=== PATIENT | male | born 1950 | race Caucasian/White ===

== ENCOUNTER 2024-06-23 20:49 | Inpatient (IN) | payer OTHER, MEDICARE, SELFPAY ==
[2024-06-23 14:48] VITALS: BP 141/83; BMI 21.6
--- NOTE | 2024-06-23 15:00 | EDRN ---
Pt started to drink CT contrast @ 1500
[2024-06-23 15:20] LABS: % Basophils 0.3 % (0-2); % Eosinophils 0.2 % (0-6); % Immature Granulocytes 0.7 % (0-0.5); % Lymphocytes 18.8 % (20.5-51.1); % Monocytes 9.1 % (1.7-9.3); % Neutrophils 70.9 % (42.2-75.2); Absolute Immature Granulocytes 0.1 10^3/uL (0-0.05); Absolute Lymphocytes 1.9 10^3/uL (1.2-3.4); Absolute Monocytes 0.9 10^3/uL (0.1-0.6); Absolute Neutrophils 7.1 10^3/uL (1.4-6.5); Hematocrit 35.8 % (39.0-52.0); Hemoglobin 12.9 g/dL (13.0-18.0); Mean Platelet Volume 11.7 fL (7.4-10.4); Nucleated Red Blood Cells % 0 % (-); Platelet Count 105 10^3/uL (130-400); Red Blood Cell Count 3.69 10^6/uL (4.70-6.10); Red Cell Dist. Width 13.9 % (11.5-14.5)
[2024-06-23 15:27] LABS: ALT (SGPT) 32 U/L (0-50); AST (SGOT) 39 U/L (17-59); Albumin 4.3 g/dl (3.5-5.0); Alkaline Phosphatase 67 U/L (38-126); Blood Urea Nitrogen 19 mg/dl (9-20); Calcium 9.6 mg/dl (8.4-10.2); Carbon Dioxide 23 mmol/L (22-30); Chloride 103 mmol/L (98-107); Estimated Creatinine Clearance 91 ml/min; Glucose 104 mg/dl (70-99); Lipase 76 U/L (23-300); Potassium 4.3 mmol/L (3.5-5.1); Sodium 135 mmol/L (135-145); Total Bilirubin 2.9 mg/dl (0.2-1.3); Total Protein 7.1 g/dl (6.3-8.2); eGFR > 60.00
[2024-06-23 16:42] VITALS: BP 136/70
--- NOTE | 2024-06-23 17:59 | ED.GENMED ---
History of Present Illness
General
Chief Complaint: Abdominal Pain
Source: patient
Exam Limitations: none
Time Seen by Provider: 06/23/24 17:54
History of Present Illness
History of Present Illness:
See MDM
Past History
Past History
ED Past Medical History: Arrthythmia and HTN
ED Past Surgical History: Cardiac (Pacemaker)
Phy Exam
Physical Exam
Physical Exam:
See MDM
Course
Orders/Labs/Results
Orders:
Orders
06/23/24 14:53
CT Abd/pel (oral only)-[facility] Only Urgent
Comment:
Reason For Exam: RLQ pain
06/23/24 14:55
Iohexol [Omnipaque] 50 ml .ROUTE .STK-MED ONE
06/23/24 14:58
Complete Blood Count/With Diff Urgent
Comprehensive Metabolic Panel Urgent
Lipase Urgent
06/23/24 18:31
Piperacillin/Tazo 3.375 Gram [Zosyn] 3.375 gram in 50 ml IV NOW
Abnormal Lab Results
06/23/24
14:58
RBC 3.69 L 10^6/uL
(4.70-6.10)
Hgb 12.9 L g/dL
(13.0-18.0)
Hct 35.8 L %
(39.0-52.0)
MCV 97.0 H fL
(80.0-94.0)
MCH 35.0 H pg
(27.0-31.0)
Plt Count 105 L 10^3/uL
(130-400)
MPV 11.7 H fL
(7.4-10.4)
Abs Immat Gran (auto) 0.1 H 10^3/uL
(0-0.05)
Absolute Neuts (auto) 7.1 H 10^3/uL
(1.4-6.5)
Absolute Monos (auto) 0.9 H 10^3/uL
(0.1-0.6)
Immature Gran % 0.7 H %
(0-0.5)
Lymphocytes % 18.8 L %
(20.5-51.1)
Glucose 104 H mg/dl
(70-99)
Total Bilirubin 2.9 H mg/dl
(0.2-1.3)
06/23/24 14:58
06/23/24 14:58
Vital Signs
Initial and Last Documented VS:
Initial Vital Signs
Temp Pulse Resp BP Pulse Ox
98.5 F 81 16 141/83 98
06/23/24 14:48 06/23/24 14:48 06/23/24 14:48 06/23/24 14:48 06/23/24 14:48
Last Documented Vital Signs
Temp Pulse Resp BP Pulse Ox
98.4 F 83 18 131/72 99
06/23/24 16:42 06/23/24 18:28 06/23/24 18:28 06/23/24 18:28 06/23/24 18:28
MDM/Problems Addressed
Differential Diagnosis Includes:
HPI and MDM Narrative:
74-year-old male presenting for evaluation of right lower quadrant pain. Symptoms have been ongoing for the past several days. He saw his PCP today. Due to the tenderness to the right lower quadrant, he was sent in for CT to rule out acute
appendicitis. Patient denies pain with urination or food intake.
On exam, he does have point tenderness to right lower quadrant. Blood work without significant abnormality. CT pending
Physical exam
General: Well appearing and non-toxic
HEENT: protecting airway
Neck: appears supple
CV: No evidence of cyanosis
Resp: No accessory muscle use
Abd: Non-distended. Point tenderness to right lower quadrant
Extremities: No deformities
Neuro: alert
Psych: Normal affect
Skin: Intact
Problems Addressed including Acute and Chronic Conditions affecting care:
1. Right lower quadrant pain
Acuity: acute
Prognosis: stable
Details: Given the point tenderness, will obtain CT to rule out acute appendicitis
Updates
CT consistent with acute appendicitis. Given no fever, no leukocytosis and how well-appearing he is, patient does not require emergent surgery. General surgery made aware. Will start Zosyn and for surgical evaluation
Differential Diagnosis (but not limited to): Acute appendicitis, colitis, kidney stone
Testing considered: Right upper quadrant ultrasound but no pain with food intake and no pain to right upper quadrant
Drug therapy (if applicable): OTC meds, please see d/c instruction regarding Rx drugs
Amount and/or Complexity of Data Reviewed
Clinical info obtained from: Patient
External data reviewed: N/A
Labs I independently reviewed (but not limited to): White blood cell count within normal limits
Radiology: The CT scan was personally and independently reviewed. In addition, official CT report reviewed.
Pulse Ox: not hypoxic
EKG independently reviewed: N/A
Assistant Surveyor: N/A
Critical Care: N/A
Risk of Complication:
Social Determinants of health: Good social support
Discussed with other providers: Hospitalist, general surgery
Escalation of Care includes Admit/Obs: Given CT evidence of acute appendicitis, will admit for surgical evaluation and fixation
Occasional wrong word or 'sound a like' substitutions may have occurred due to the inherent limitations of voice recognition software. Read the chart carefully and recognize, using context, where substitutions have occurred.
*Critical Care Note
Total Time (30-74mins, 75-104mins- exclusive of procedures): Not Applicable
ED Attending Note
-
Portions of this chart may have been created with voice recognition software.� Occasional wrong word or��sound alike� substitutions may have occurred due to the inherent limitations of voice recognition software.
Discharge Plan
Departure
Patient Disposition: Admit
Date of Disposition: 06/23/24
Time of Disposition: 18:38
Admit to: Med/Surg
Presentation/result/management discussed w/ accepting MD/DO: Hospitalist
Discharge Problem:
Acute appendicitis
Interventions
Interventions:
*Risk Screen - Suicide Last Done: 06/23/24 14:48
*General Assessment Last Done: 06/23/24 17:45
*Neglect/Abuse Screening Last Done: 06/23/24 14:48
ED- Fall Risk Assessment Last Done: 06/23/24 14:48
EA-Kxcluo-Bpkfstnvjh Assessment Last Done: 06/23/24 17:45
Discharge Date and Time
Print Language: KOSOVAN
[2024-06-23 18:28] VITALS: BP 131/72
[2024-06-23] MEDS: ZOSYN 50 IV ×2 (18:38→22:58)
--- NOTE | 2024-06-23 20:04 | HPS.HSE ---
Family Physician
-
Family Physician: Trice Goldman, PAC
Chief Complaint
-
Abdominal pain
History of Present Illness
74M HX AF, chr Eliquis, Defibrillator implant, HTN sent to ER for abdominal pain and OP CT AP script
Evaluation of Abdominal pain
- Acute onset RLQ pain for a few days.
- Last dose of Eliquis was this morning.(Fri06/23/24)
- No fever and WBC normal.
Medical History
Past Medical History
Past Medical History: Reports Arrhythmia and HTN
Past Surgical History: Reports Cardiac (PPM implant )
Social History
Tobacco: Non-smoker
Alcohol: None
Drug: None
Family History
Family History: Not pertinent
Allergies / Home Medications
Allergies reflects when Allergies were last updated in [facility].
Home Medications with original date entered in [facility]
Allergy/Medication List:
Allergies
Allergy/AdvReac Type Severity Reaction Status Date / Time
No Known Allergies Allergy Unverified 06/23/24 14:48
Home Medications
apixaban 5 mg tablet (Eliquis) 5 mg PO BID 06/23/24
atorvastatin 80 mg tablet 80 mg PO HS 06/23/24
clopidogrel 75 mg tablet 75 mg PO DAILY 06/23/24
lisinopril 5 mg tablet 5 mg PO HS 06/23/24
metoprolol succinate 100 mg tablet,extended release 24 hr 100 mg PO DAILY 06/23/24
therapeutic multivitamin 1 tab PO DAILY 06/23/24
Review of Systems
-
Constitutional: Reports No Symptoms
EENT: Reports No Symptoms
Respiratory: Reports No Symptoms
Cardiac: Reports No Symptoms
Abdomen/GI: Reports Abdominal Pain
: Reports No Symptoms
Musculoskeletal: Reports No Symptoms
Skin: Reports No Symptoms
Neurological: Reports No Symptoms
Endocrine: Reports No Symptoms
Hematologic/Lymphatic: Reports No Symptoms
Psych: Reports No Symptoms
Physical Exam
Vital Signs
Vital Signs
Temp Pulse Resp BP Pulse Ox
98.4 F 83 18 131/72 99
06/23/24 16:42 06/23/24 18:28 06/23/24 18:28 06/23/24 18:28 06/23/24 18:28
Physical Exam
General: No Apparent Distress, Comfortable and Conversant
HEENT: NormoCephalic, Anicteric and Moist mucous membranes
Respiratory: Clear
Cardiac: S1/S2 and Other (AICD im plant at Rt upper chest )
GI: Soft and Tender (RLQ , tenderness, non rebound )
Genito-urinary: Deferred by me
Musculoskeletal: No Edema
Neuro: AO x 3
Psych: Calm and Intact Judgment/Insight
Laboratory Results
-
06/23/24 14:58
06/23/24 14:58
Laboratory Results
Total Bilirubin 2.9 mg/dl (0.2-1.3) H 06/23/24 14:58
AST 39 U/L (17-59) 06/23/24 14:58
ALT 32 U/L (0-50) 06/23/24 14:58
Alkaline Phosphatase 67 U/L (38-126) 06/23/24 14:58
Lipase 76 U/L (23-300) 06/23/24 14:58
Data Reviewed
-
CT Scan: Report Reviewed by me
Lab Data: Labs Reviewed by me
Impression/Plan
-
Reviewed VS: unremarkable
Data
WCC 10
Hgb 12.9
Plt 105
TB 2.9
otherwise nl LFTs
CT Abd/pel (oral only)-[facility] Only
- acute appendicitis.
No prior [facility] admission:
ASSESSMENT & PLAN
Acute uncomplicated pancreatitis
last dose of Eliquis was this AM Fri06/23/24
- Stable
- no fever, no leukocytosis
- Held Plavix and Eliquis ( Last dose of Plavix and Eliquis Wed 9AM 06/23)
- NPO and IVF
- Empiric IV Zosyn
- Analgesia PRN
- GS consulted by ER
HX Prx AF
Present AICD implant
- Held Eliquis
HX CAD
- Held Plavix
Essential HTN
- IV Hydralazine PRN
- Held Lisinopril
DVT Px: SCD
Code: Full code
IP TLM
[2024-06-23 20:37] VITALS: BP 132/75
[2024-06-23 21:30] VITALS: BMI 21.8
[2024-06-23 21:31] VITALS: BP 132/71
[2024-06-23] MEDS: LOPRESSOR 5 MG IV (22:55)
[2024-06-23] MEDS: NSS 1000 IV (22:58)
--- NOTE | 2024-06-23 23:00 | PTCARENOTE ---
Patient received from ED via stretcher. Patient able to ambulate independently to bed, steady gait. POC reviewed with patient, fall precautions and room safety reviewed with patient. Call anthony with in reach. Care ongoing.
[2024-06-23 23:14] VITALS: BP 116/71
[2024-06-24 03:27] VITALS: BP 121/74
[2024-06-24] MEDS: LOPRESSOR IV ×3 (05:26→17:55)
[2024-06-24] MEDS: ZOSYN 50 IV ×3 (05:27→17:56)
[2024-06-24 06:27] LABS: Mean Corp Hgb Conc. 36.1 g/dL (33.0-37.0); Mean Corpuscular Hgb 35.1 pg (27.0-31.0); Mean Corpuscular Volume 97.3 fL (80.0-94.0); Mean Platelet Volume 11.6 fL (7.4-10.4); Platelet Count 95 10^3/uL (130-400); Red Cell Dist. Width 13.7 % (11.5-14.5); White Blood Cell Count 7.3 10^3/uL (4.8-10.8)
[2024-06-24 07:00] VITALS: BP 114/68
[2024-06-24 07:22] LABS: Blood Urea Nitrogen 16 mg/dl (9-20); Calcium 9.1 mg/dl (8.4-10.2); Carbon Dioxide 27 mmol/L (22-30); Chloride 104 mmol/L (98-107); Estimated Creatinine Clearance 80 ml/min; Glucose 90 mg/dl (70-99); Potassium 4.2 mmol/L (3.5-5.1); Sodium 136 mmol/L (135-145); eGFR > 60.00
--- NOTE | 2024-06-24 08:55 | W.PN.GS2 ---
Addendum entered and electronically signed by Ricardo Jalloh MD 06/24/24 12:00:
See consultation note of mine regarding formal documentation and evaluation of patient this a.m.
Original Note:
Today's Communication / Plan
-
*Conservative/Non-Surgical management of acute episode/Considering pt significant clinical improvement and current anticoagulat/antiplt therapy
Assessment / Plan
-
ASSESSMENT:
74-year-old male with relevant PSHx of bilateral inguinal hernia repair (2013) and previous PCI with cardiac stent and ICD placement (2019) on current oral anticoagulation and antiplatelet therapy, presenting with an episode of acute appendicitis.
PLAN:
Conservative/Non-Surgical management of acute episode/Considering pt significant clinical improvement and current anticoagulat/antiplt therapy
Continue IV Sozyn
Start Full-Liquids Diet
Time Spent
Total Time Spent with Patient (in minutes): ~ 10 Min
Subjective Data
-
Date of Service: June 24, 2024
Pt was seen and evaluated at the bedside this morning with attending physician
No acute O/N Events reported
Pt stated feels better / No ABD pain this morning
Denies N/V
+ BM this morning
Objective Data
-
Intake and Output
06/23/24 06/24/24 06/25/24
06:59 06:59 06:59
Intake Total 460 / 460
Balance 460 / 460
Intake:
IV fluids (Total) 360 / 360
IV piggybacks 100 / 100
Other:
Number of approximated MODERATE 1
amounts of urine
Vital Signs
Temp Pulse Resp BP Pulse Ox
36.6 C 76 18 114/68 98
06/24/24 07:00 06/24/24 07:00 06/24/24 07:00 06/24/24 07:00 06/24/24 07:00
Lab Results
06/24/24 06:13
06/24/24 06:13
Calcium 9.1 mg/dl (8.4-10.2) 06/24/24 06:13
Total Bilirubin 2.9 mg/dl (0.2-1.3) H 06/23/24 14:58
AST 39 U/L (17-59) 06/23/24 14:58
ALT 32 U/L (0-50) 06/23/24 14:58
Alkaline Phosphatase 67 U/L (38-126) 06/23/24 14:58
Total Protein 7.1 g/dl (6.3-8.2) 06/23/24 14:58
Albumin 4.3 g/dl (3.5-5.0) 06/23/24 14:58
Physical Exam
-
VITALS: AF / STABLE
PE:
GEN- AAOx3 / IN NAD / Comfortably resting in bed
ABD- Soft/Non-Distended, NO Rigidity, Rebound or Guarding
Mild Localized TTP on the RLQ
[2024-06-24 11:00] VITALS: BP 107/62
--- NOTE | 2024-06-24 12:03 | CON.GS ---
Consultation
-
Performing Provider: Yeimi
Reason for Consultation: Acute Appendicitis
Medical History
-
Chief Complaint: Abdominal pain
History of Present Illness:
Patient is a 74-year-old male who was in his usual baseline state of health until Friday when he began developing mild lower abdominal discomfort. This increased in severity and began localizing to the right lower quadrant. Reached out and saw his
primary care provider yesterday who referred patient to the emergency department for evaluation. He has had some associated anorexia but no nausea, no vomiting. Bowels have been a bit looser but moving.
Colonoscopy up-to-date per patient. Last one this past fall, next due in 5 years. Abdominal surgical history only notable for right and left inguinal herniorrhaphies in the distant past. Of note past cardiac history notable for VA, subsequent
cardiac catheterization with stent placement and AICD. He remains on Eliquis and antiplatelet therapy with clopidogrel. Last dose of Eliquis and clopidogrel was 24 hours ago.
This a.m. Mr. Gay is feeling better. His acute pain is subsiding and he has mild lingering discomfort.
Past Medical History
Past Medical History: Other (Hypertension, history of VA with defibrillator placement)
Past Surgical History: Cardiac (Cardiac catheterization with stent placement for previous VA) and Hernia Repair
Social History
Tobacco: Non-Smoker
Family History
Family History: Reviewed & Noncontributory
Allergies / Home Medications
Allergy/AdvReac Type Severity Reaction Status Date / Time
No Known Allergies Allergy Unverified 06/23/24 14:48
�Medication �Instructions �Recorded �Confirmed �Type
apixaban 5 mg tablet (Eliquis) 5 mg PO BID Blood Clot 06/23/24 06/23/24 History
Prevention/Tx
atorvastatin 80 mg tablet 80 mg PO HS High Cholesterol 06/23/24 06/23/24 History
clopidogrel 75 mg tablet 75 mg PO DAILY Blood Clot 06/23/24 06/23/24 History
Prevention/Tx
lisinopril 5 mg tablet 5 mg PO HS Blood Pressure 06/23/24 06/23/24 History
metoprolol succinate 100 mg 100 mg PO DAILY Blood Pressure 06/23/24 06/23/24 History
tablet,extended release 24 hr
therapeutic multivitamin 1 tab PO DAILY Supplement 06/23/24 06/23/24 History
Review of Systems
-
History Source: Patient
All other systems: Negative unless noted
A 10 point review of systems was completed, and was negative except as per HPI.
Physical Exam
Vital Signs
Temp Pulse Resp BP Pulse Ox
97.9 F 69 18 107/62 95
06/24/24 11:00 06/24/24 11:00 06/24/24 11:00 06/24/24 11:00 06/24/24 11:00
06/23/24 06/24/24 06/25/24
06:59 06:59 06:59
Actual Weight 70.987 kg
Body Mass Index (BMI) 21.8
Lab Results
06/24/24 06:13
06/24/24 06:13
WBC 7.3 10^3/uL (4.8-10.8) 06/24/24 06:13
Hgb 13.0 g/dL (13.0-18.0) 06/24/24 06:13
Hct 36.0 % (39.0-52.0) L 06/24/24 06:13
Plt Count 95 10^3/uL (130-400) L 06/24/24 06:13
Abs Immat Gran (auto) 0.1 10^3/uL (0-0.05) H 06/23/24 14:58
Neutrophils % 70.9 % (42.2-75.2) 06/23/24 14:58
Physical Exam
General: Well Developed, Well Nourished, No Apparent Distress and Comfortable
HEENT: Normocephalic, Anicteric and Moist Mucous Membranes
Respiratory: Non Labored Respirations
Cardiac: Regular Rhythm
GI: Soft, Non Distended and Tender (Mild tenderness palpation right lower quadrant. Some voluntary guarding only on deep palpation. No rebound or rigidity, no percussion tenderness.)
Skin: Warm
Neuro: AO x 3
Data Reviewed
-
CT Scan: Image Personally Visualized and interpreted, Report Reviewed by me and Discussed with Patient
Labs: Labs Reviewed by me and Discussed with Patient
Assessment / Plan
-
Assessment: 74-year-old male presenting with acute uncomplicated appendicitis.
CT imaging personally reviewed and interpreted. There is a dilated tubular structure in the right lower quadrant blind-ending with surrounding inflammatory changes and slight wall thickening through to the base of the cecum. There does not appear
to be any obstructing fecalith. Findings consistent with acute appendicitis without abscess or radiographic findings of perforation.
On examination patient has no peritoneal signs. Pain and tenderness improving overnight. Clinically stable without fever, no tachycardia, WBC remains normal. No reactive ileus or obstructive symptoms.
In the setting of antiplatelet therapy on clopidogrel as well as Eliquis (although this is now essentially almost washed out) we discussed preferential nonoperative management particularly given uncomplicated appendicitis without what appears to be
an obstructive fecalith. High likelihood of adequate clinical response and treatment with medical management alone. Discussed both short term risk for treatment failure and longer term potential risk for recurrent appendicitis.
After discussions with patient he is in agreement and would like to avoid surgery unless were to fail nonoperative management.
Plan: Continue Zosyn for empiric coverage of uncomplicated appendicitis with plan to transition to Augmentin on discharge for total of a 10-day course.
Clear liquid diet today.
Hold therapeutic anticoagulation and Plavix today.
Repeat CBC tomorrow a.m., follow fever curve and abdominal examinations.
If continued clinical improvement would anticipate resumption of regular diet and discharge home on oral antibiotic therapy with outpatient surgical follow-up in 2 to 3 weeks and resumption of Eliquis and clopidogrel tomorrow 06/25/24.
--- NOTE | 2024-06-24 12:14 | W.PN.HOSP.TC ---
Today's Communication/Plan
-
Continue with IV antibiotics
Hold lisinopril, Eliquis, and Plavix
Start diet and advance as tolerated
Assessment / Plan
Assessment / Plan
#Acute uncomplicated appendicitis
-No fevers or leukocytosis today, pain remains mild and mostly with palpation
-Surgery evaluated, recommending conservative management for now
-Remains on IV Zosyn for empiric coverage, started on full liquid diet this morning
-Home Plavix and Eliquis dose remain held, as does lisinopril
Plan
-Continue IV Zosyn, day 1 antibiotics
-Can likely transition to p.o. equivalent regimen at [facility]
-Start full liquid diet and advance as tolerated
-Analgesia as needed
#Paroxysmal AF
-Home regimen includes metoprolol succinate, Eliquis
-No known history of EP procedures for A-fib, does have pacemaker
-Heart rate currently WNL and regular
-Eliquis held for now, in the event of needed procedure
#CAD s/p PCI
-Home medications include metoprolol, Plavix, high intensity statin
-No longer on DAPT, is on Eliquis for AF
-Held Plavix for now in the event of needed procedure
#Essential HTN
-Chronic, no known systemic cardiovascular effects
-Home regimen includes metoprolol and lisinopril, lisinopril held prior to potential procedure
-Most recent blood pressures have been very well-controlled without lisinopril
-IV hydralazine was ordered at admission
Anticipated Discharge: 24 - 48 hours
Subjective/Interval History
-
Date of Service: June 24, 2024
Seen at the bedside. No acute events since admission. Was seen by general surgery team today is recommending conservative management of his uncomplicated appendicitis. He states that he feels well other than occasional tenderness to palpation in
the right lower quadrant of his abdomen. No nausea or vomiting at this time, normal bowel habitus
Objective Data
-
Labs:
Laboratory Results
06/24/24
06:13
WBC 7.3
Hgb 13.0
Hct 36.0 L
Plt Count 95 L
Sodium 136
Potassium 4.2
Chloride 104
Carbon Dioxide 27
BUN 16
Creatinine 0.8
Glucose 90
Calcium 9.1
Vital Signs:
Vital Signs
Temp Pulse Resp BP Pulse Ox
97.9 F 69 18 107/62 95
06/24/24 11:00 06/24/24 11:00 06/24/24 11:00 06/24/24 11:00 06/24/24 11:00
I&O
06/23/24 06/24/24 06/25/24
06:59 06:59 06:59
Intake Total 460 / 460
Balance 460 / 460
Review of Systems
-
History Source: Patient
Constitutional: Reports No Symptoms
Respiratory: Reports No Symptoms
Cardiac: Reports No Symptoms
Abdomen/GI: Reports Abdominal Pain (Mild); Denies Nausea, Vomiting or Diarrhea
Genitourinary: Reports No Symptoms
Musculoskeletal: Reports No Symptoms
Neuro: Reports No Symptoms
Physical Exam
-
General: Well Nourished, No Apparent Distress, Comfortable and Conversant
HEENT: Normocephalic, Atraumatic, Moist Mucous Membranes and Anicteric
Respiratory: Clear to Auscultation and Non Labored Respirations
Cardiac: Regular Rhythm and S1/S2; Negative Murmur, Rub, JVD or Gallop
GI: Soft, Nondistended, Normal Bowel Sounds and Tender (Mild, RLQ, no peritoneal signs)
Musculoskeletal: No Clubbing, No Cyanosis and No Edema
Skin: Warm, Dry and Normal Turgor; Negative Rash or Jaundice
Neuro: AO x 3, Nonfocal/Grossly Intact and Central Nerve's Intact
Psych: Calm
Data Reviewed
-
CT Scan: Report Reviewed by me
Labs: Labs Reviewed by me and Discussed with Patient
[2024-06-24 15:00] VITALS: BP 122/58
[2024-06-24] MEDS: NSS 1000 IV (16:48)
[2024-06-24 19:28] VITALS: BP 136/66
[2024-06-24 23:17] VITALS: BP 142/68
[2024-06-25] MEDS: ZOSYN 50 IV ×3 (00:27→13:38)
[2024-06-25] MEDS: LOPRESSOR 5 MG IV ×3 (00:28→13:44)
[2024-06-25 03:14] VITALS: BP 115/71
[2024-06-25 07:00] VITALS: BP 100/56
[2024-06-25 07:45] LABS: % Basophils 0.5 % (0-2); % Eosinophils 1.3 % (0-6); % Immature Granulocytes 0.5 % (0-0.5); % Lymphocytes 32.7 % (20.5-51.1); % Monocytes 8.2 % (1.7-9.3); % Neutrophils 56.8 % (42.2-75.2); Absolute Eosinophils 0.1 10^3/uL (0-0.7); Absolute Monocytes 0.5 10^3/uL (0.1-0.6); Absolute Neutrophils 3.5 10^3/uL (1.4-6.5); Hematocrit 38.9 % (39.0-52.0); Mean Corpuscular Hgb 34.7 pg (27.0-31.0); Mean Corpuscular Volume 96.5 fL (80.0-94.0); Mean Platelet Volume 11.5 fL (7.4-10.4); Nucleated Red Blood Cells % 0 % (-); Platelet Count 121 10^3/uL (130-400); Red Blood Cell Count 4.03 10^6/uL (4.70-6.10); Red Cell Dist. Width 13.7 % (11.5-14.5); White Blood Cell Count 6.1 10^3/uL (4.8-10.8)
--- NOTE | 2024-06-25 07:52 | CM ---
met with patient and at bedside.patient lives with in house with no ivet,he has 6 steps to his bed and bath,he amb i and is i with his adl.dr zamora is his pcp and he uses [facility] [address] in [place].he has never had a vn or
been to ip rehab.
pmh:bl inguinal hernia repair,pafib on eliquis,pci with cardiac stent,icd placement.
patient is adm with acute appndicitis-per surgery non surgical treatment with iv zosyn,full liquids diet and advance as tolerated,holding eliquis and plavix.patient will have no anticipated needs when dc home. Plan home with no needs.
[2024-06-25 07:57] LABS: Blood Urea Nitrogen 14 mg/dl (9-20); Calcium 9.2 mg/dl (8.4-10.2); Carbon Dioxide 25 mmol/L (22-30); Chloride 103 mmol/L (98-107); Estimated Creatinine Clearance 92 ml/min; Glucose 95 mg/dl (70-99); Potassium 3.9 mmol/L (3.5-5.1); Sodium 136 mmol/L (135-145); eGFR > 60.00
--- NOTE | 2024-06-25 09:12 | W.PN.GS2 ---
Addendum entered and electronically signed by Ricardo Jalloh MD 06/25/24 10:04:
Patient seen and examined with resident. Agree with documented progress note with additions noted here.
Patient feeling much better than at initial presentation. Mild lingering discomfort right lower quadrant but not to the point that is requiring any pain medication.
Appetite improved, no nausea, continues to move bowels -loose
AFVSS
NAD AAOx3
ABD: Soft, nondistended, mild tenderness palpation right lower quadrant but there is no rebound rigidity or guarding
A/P: 74-year-old male presenting with acute uncomplicated appendicitis. Nonoperative management in the setting of therapeutic anticoagulation and antiplatelet therapy. Responding appropriately with clinical improvement.
Okay to discharge home from general surgical standpoint
Treat with 10-day course of Augmentin
Outpatient surgical follow-up in 2 to 3 weeks
Okay to resume Eliquis and clopidogrel
Counseled patient regarding risk for infectious signs or symptoms which should prompt reevaluation sooner
Original Note:
Today's Communication / Plan
-
*
Assessment / Plan
-
ASSESSMENT:
74-year-old male with relevant PSHx of bilateral inguinal hernia repair (2012) and previous PCI with cardiac stent and ICD placement (2019) on current oral anticoagulation and antiplatelet therapy, presenting with an episode of acute appendicitis.
PLAN:
Resumption of regular diet today.
Continue Zosyn for empiric coverage of uncomplicated appendicitis.
Plan for resumption of Eliquis and clopidogrel Today as well, as tolerated.
If continued clinical improvement and tolerating diet, plan for D/C home today on oral antibiotic therapy for total of a 10-day course (Augmentin)
and outpatient surgical follow-up in 2 to 3 weeks
Continue to follow CBC today as well as fever curve and abdominal examinations.
Time Spent
Total Time Spent with Patient (in minutes): ~10 min
Subjective Data
-
Date of Service: June 25, 2024
Pt was seen and evaluated at bedside this morning with attending physician.
Pt Stated he is feeling better / No complains
Tolerating Diet / Denies any N/V or bloating sensation post-prandially
Pain subside / No PRN Pain Meds taken
BM + this morning
Objective Data
-
Intake and Output
06/24/24 06/25/24 06/26/24
06:59 06:59 06:59
Intake Total 460 / 460 1600 / 1600
Balance 460 / 460 1600 / 1600
Intake:
Oral fluids 780 / 780
IV fluids (Total) 360 / 360 820 / 820
IV piggybacks 100 / 100
Other:
Number of approximated MODERATE 1 2
amounts of urine
Vital Signs
Temp Pulse Resp BP Pulse Ox
36.6 C 76 18 100/56 98
06/25/24 07:00 06/25/24 07:00 06/25/24 07:00 06/25/24 07:00 06/25/24 07:00
Lab Results
06/25/24 06:49
06/25/24 06:49
Calcium 9.2 mg/dl (8.4-10.2) 06/25/24 06:49
Magnesium 2.0 mg/dl (1.6-2.3) 06/25/24 06:49
Total Bilirubin 2.9 mg/dl (0.2-1.3) H 06/23/24 14:58
AST 39 U/L (17-59) 06/23/24 14:58
ALT 32 U/L (0-50) 06/23/24 14:58
Alkaline Phosphatase 67 U/L (38-126) 06/23/24 14:58
Total Protein 7.1 g/dl (6.3-8.2) 06/23/24 14:58
Albumin 4.3 g/dl (3.5-5.0) 06/23/24 14:58
Physical Exam
-
VITALS: STABLE
PE:
GEN- Comfortably sitting at the corner of the bed this morning in NAD / AAOx3
ABD- Soft/Non-Distended / No Rigidity, Rebound or Guarding
Mildly TTP over RLQ / which was noted to be improving significantly
[2024-06-25 11:00] VITALS: BP 126/65
--- NOTE | 2024-06-25 13:05 | W.PN.HOSP.TC ---
Today's Communication/Plan
-
Provide house diet for lunch
Discharge on oral antibiotics if he tolerates lunch
Assessment / Plan
Assessment / Plan
#Acute uncomplicated appendicitis
-No fevers or leukocytosis today, pain remains mild and mostly with palpation
-Surgery evaluated, recommending conservative management for now
-Remains on IV Zosyn for empiric coverage, started on full liquid diet this morning
-Home Plavix and Eliquis dose remain held, as does lisinopril
Plan
-Continue IV Zosyn, day 2 antibiotics
-Can likely transition to p.o. equivalent regimen at [place]
-Start full liquid diet and advance as tolerated
-Analgesia as needed
#Paroxysmal AF
-Home regimen includes metoprolol succinate, Eliquis
-No known history of EP procedures for A-fib, does have pacemaker
-Heart rate currently WNL and regular
-Eliquis held for now, in the event of needed procedure
#CAD s/p PCI
-Home medications include metoprolol, Plavix, high intensity statin
-No longer on DAPT, is on Eliquis for AF
-Held Plavix for now in the event of needed procedure
#Essential HTN
-Chronic, no known systemic cardiovascular effects
-Home regimen includes metoprolol and lisinopril, lisinopril held prior to potential procedure
-Most recent blood pressures have been very well-controlled without lisinopril
-IV hydralazine was ordered at admission
Anticipated Discharge: Today
Subjective/Interval History
-
Date of Service: June 25, 2024
Seen and examined at bedside. No acute events. Feels well and is tolerated full liquid diet without issue. Will transition to house diet, plan for discharge on oral antibiotics if he tolerates well. Denies fevers, chills, shortness of breath,
chest pain, nausea or vomiting. Does have occasional abdominal pain but only to palpation. Improved from prior to admission.
Objective Data
-
Labs:
Laboratory Results
06/25/24
06:49
WBC 6.1
Hgb 14.0
Hct 38.9 L
Plt Count 121 L D
Sodium 136
Potassium 3.9
Chloride 103
Carbon Dioxide 25
BUN 14
Creatinine 0.7
Glucose 95
Calcium 9.2
Vital Signs:
Vital Signs
Temp Pulse Resp BP Pulse Ox
98.0 F 75 18 126/65 99
06/25/24 11:00 06/25/24 11:00 06/25/24 11:00 06/25/24 11:00 06/25/24 11:00
I&O
06/24/24 06/25/24 06/26/24
06:59 06:59 06:59
Intake Total 460 / 460 1600 / 1600
Balance 460 / 460 1600 / 1600
Review of Systems
-
History Source: Patient
All other systems: Reviewed and negative
Physical Exam
-
General: Well Nourished, No Apparent Distress, Comfortable and Conversant
HEENT: Normocephalic, Atraumatic and Moist Mucous Membranes
Respiratory: Clear to Auscultation and Non Labored Respirations
Cardiac: Regular Rhythm and S1/S2; Negative Murmur, Rub or Gallop
GI: Soft, Nondistended, Normal Bowel Sounds and Tender (RLQ, deep palpation, no peritoneal signs); Negative Organomegaly
Musculoskeletal: No Clubbing, No Cyanosis and No Edema
Skin: Warm and Dry; Negative Rash
Neuro: AO x 3, Nonfocal/Grossly Intact and Central Nerve's Intact
Data Reviewed
-
Labs: Labs Reviewed by me
--- NOTE | 2024-06-25 13:14 | W.DCSUMMARY ---
Discharge Summary
Discharge Data
Date of Admission: 06/23/24
Date of Discharge: 06/25/24
-
Pending Results: No
Hospital Course
Presented to the hospital with right lower quadrant abdominal pain, CT findings consistent with acute uncomplicated appendicitis. Due to his cardiac history which includes A-fib, previous pacemaker, CAD s/p PCI was elected for conservative
treatment after consultation with surgical service. He was started on IV Zosyn and a clear liquid diet which was advanced to the patient tolerated. He handled oral intake appropriately and was discharged on day 2 of hospital stay.
-Continue with Augmentin 875/125 every 12 hours for 8 more days
-Continue with ciprofloxacin 500 mg every 12 hours regular days
-Follow-up with surgeon in 2 weeks
Discharge Plan
-
Patient Disposition: Home (Routine Discharge)
Discharge Diagnosis/Procedures: Acute uncomplicated appendicitis
Diet: No restrictions
Activity: No restrictions
Driving Restrictions: As prior to admission
Bathing Restrictions: None
Referrals:
Trice Goldman PA-C [Family Provider] -
Additional Discharge Medication Instructions: Start Augmentin 875/125 mg every 12 hours for 8 days after discharge
Start ciprofloxacin 500 mg every 12 hours for 8 days after discharge
Avoid calcium/magnesium supplements (Centrum Silver) within 2 hours of ciprofloxacin doses as it may interfere with antibiotic absorption
Prescriptions:
New
ciprofloxacin HCl 500 mg tablet
500 mg PO Q12H 8 Days Qty: 16 0RF
amoxicillin-pot clavulanate 875-125 mg tablet
1 tab PO Q12H 8 Days Qty: 16 0RF
Continued
atorvastatin 80 mg tablet
80 mg PO HS
metoprolol succinate 100 mg tablet extended release 24 hr
100 mg PO DAILY
therapeutic multivitamin Tablet
1 tab PO DAILY
clopidogrel 75 mg tablet
75 mg PO DAILY
lisinopril 5 mg tablet
5 mg PO HS
Eliquis 5 mg tablet
5 mg PO BID
Discharge Orders:
Discharge Patient (As Directed); Ordered 06/25/24
Ordered By: Erasmo Pittman
Discharge Date and Time
Print Language: [place]
[2024-06-25 15:40] VITALS: BP 116/64
== END 2024-06-25 15:41 | disposition home or self-care (01) | DRG 395 ==
LOC: 3 WEST ACU 20:49
PROVIDERS: ADMITTING PHYSICIAN Internal Medicine; ATTENDING PHYSICIAN Internal Medicine; CONSULT PHYSICIAN Surgery; EMERGENCY PHYSICIAN Student in an Organized Health Care Education/Training Program; FAMILY PHYSICIAN Physician Assistant
DX: K35.80 Unspecified acute appendicitis (principal); I48.0 Paroxysmal atrial fibrillation; I10 Essential (primary) hypertension; I25.10 Atherosclerotic heart disease of native coronary artery without angina pectoris; E78.00 Pure hypercholesterolemia, unspecified; I25.2 Old myocardial infarction; Z79.01 Long term (current) use of anticoagulants; Z79.02 Long term (current) use of antithrombotics/antiplatelets; Z95.810 Presence of automatic (implantable) cardiac defibrillator; Z95.5 Presence of coronary angioplasty implant and graft
CPT/HCPCS: 74176; 80048; 80053; 83690; 83735; 85025; 85027; 96365; 99284